=== PATIENT | male | born 1995 | race Caucasian/White ===

== ENCOUNTER 2021-04-06 20:52 | Emergency (ER) | payer BC ==
[2021-04-07] MEDS ORDERED: FAMOTIDINE 20 MG/2 ML VIAL IV ONE (01:36)
[2021-04-07] MEDS ORDERED: NA CHLORIDE 0.9% 1,000 ML ONE (01:36)
[2021-04-07 01:55] LABS: Protime INR 1.13
[2021-04-07 01:59] LABS: Absolute Lymphocytes (CBC) 3.2 K/uL (0.7-4.9); Basophils % 0.6 % (0-1.3); Hematocrit 42.9 % (39.6-49.0); Lymphocytes % 33.4 % (15.3-44.8); MPV 8.1 fL (7.6-11.3); RBC Red Blood Cell Count 5.08 M/uL (4.33-5.43)
[2021-04-07 02:12] LABS: ALT/SGPT 48 U/L (12-78); Albumin 4.3 g/dL (3.4-5.0); Alkaline Phosphatase 79 U/L (45-117); BUN Blood Urea Nitrogen 14 mg/dL (7-18); Bicarbonate 28 mmol/L (21-32); Bilirubin Direct 0.1 mg/dL (0-0.2); Bilirubin Total 0.4 mg/dL (0.2-1.0); Glucose Level 92 mg/dL (74-106); Lipase 101 U/L (73-393); NT PRO-BNP 6 pg/mL (<125); Potassium 4.3 mmol/L (3.5-5.1); Protein, Total 8.4 g/dL (6.4-8.2); Sodium Level 140 mmol/L (136-145); Troponin (Emerg Dept Use Only) < 0.02 ng/mL (0.0-0.045)
[2021-04-07 02:13] LABS: AST/SGOT 28 U/L (15-37); Magnesium 2.3 mg/dL (1.8-2.4)
[2021-04-07] MEDS ORDERED: FOLIC ACID 5 MG/ML VIAL ONE (03:14)
[2021-04-07] MEDS ORDERED: CEFTRIAXONE 1000 MG/VIAL ONE (03:45)
[2021-04-07] MEDS ORDERED: ASPIRIN 81 MG CHEWABLE TABLET ONE (03:45)
[2021-04-07] MEDS ORDERED: AMOX/K CLAV 875 MG TAB ONE (03:45)
--- NOTE | 2021-04-07 04:03 | EDPHYS ---
Physician Documentation [facility] Name: Gene James Age: 25 yrs Sex: Male : 1995 Arrival Date: 04/06/2021 Time: 21:23 Bed 2 Private MD: RICCO Physician Wallace Tyler HPI: 04/07 00:40 This 25 yrs old Male presents to ER via Ambulatory with complaints of tena TINGLING ON RT SIDE, Problem iwth throat. 00:40 The patient presents to the emergency department with nausea, that is mild. Onset: The tena symptoms/episode began/occurred 5 day(s) ago. Possible causes: unknown. The symptoms are aggravated by nothing. The symptoms are alleviated by nothing. difficulty swallowing 5 days, tonight right side feels numb. The patient presents to the emergency department with paresthesias of the right lower extremity, right upper extremity. Context: occurred at home. Associated signs and symptoms: The patient has no apparent associated signs or symptoms. Severity of symptoms: At their worst the symptoms were mild in the emergency department the symptoms are unchanged. Associated signs and symptoms: The patient has no apparent associated signs or symptoms. Historical: - Allergies: 04/06 22:32 No Known Allergies; bb - Home Meds: 22:32 None [Active]; bb - PMHx: 22:32 None; bb - PSHx: 22:32 None; bb - Immunization history:: Adult Immunizations up to date. - Social history:: Smoking status: Reported history of juuling and/or vaping. Patient uses alcohol, but reports only rare drinking. Patient/guardian denies using street drugs. - Family history:: not pertinent. ROS: 04/07 00:40 Constitutional: Negative for fever, chills, and weight loss, Eyes: Negative for injury, tena pain, redness, and discharge, ENT: Negative for injury, pain, and discharge, Neck: Negative for injury, pain, and swelling, Cardiovascular: Negative for chest pain, palpitations, and edema, Respiratory: Negative for shortness of breath, cough, wheezing, and pleuritic chest pain, Abdomen/GI: Negative for abdominal pain, nausea, vomiting, diarrhea, and constipation, Back: Negative for injury and pain, : Negative for injury, bleeding, discharge, and swelling, MS/Extremity: Negative for injury and deformity, Skin: Negative for injury, rash, and discoloration, Neuro: Negative for headache, weakness, numbness, tingling, and seizure, Psych: Negative for depression, anxiety, suicide ideation, homicidal ideation, and hallucinations, Allergy/Immunology: Negative for hives, rash, and allergies, Endocrine: Negative for neck swelling, polydipsia, polyuria, polyphagia, and marked weight changes, Hematologic/Lymphatic: Negative for swollen nodes, abnormal bleeding, and unusual bruising. Neuro: Negative for altered mental status, dizziness, gait disturbance, headache, numbness, seizure activity, speech changes, syncope, near syncope, tinnitus, tremor, visual changes, weakness, acute changes. Exam: 00:40 Constitutional: This is a well developed, well nourished patient who is awake, alert, tena and in no acute distress. Head/Face: Normocephalic, atraumatic. Eyes: Pupils equal round and reactive to light, extra-ocular motions intact. Lids and lashes normal. Conjunctiva and sclera are non-icteric and not injected. Cornea within normal limits. Periorbital areas with no swelling, redness, or edema. ENT: Nares patent. No nasal discharge, no septal abnormalities noted. Tympanic membranes are normal and external auditory canals are clear. Oropharynx with no redness, swelling, or masses, exudates, or evidence of obstruction, uvula midline. Mucous membranes moist. Neck: Trachea midline, no thyromegaly or masses palpated, and no cervical lymphadenopathy. Supple, full range of motion without nuchal rigidity, or vertebral point tenderness. No Meningismus. Chest/axilla: Normal chest wall appearance and motion. Nontender with no deformity. No lesions are appreciated. Cardiovascular: Regular rate and rhythm with a normal S1 and S2. No gallops, murmurs, or rubs. Normal PMI, no JVD. No pulse deficits. Respiratory: Lungs have equal breath sounds bilaterally, clear to auscultation and percussion. No rales, rhonchi or wheezes noted. No increased work of breathing, no retractions or nasal flaring. Abdomen/GI: Soft, non-tender, with normal bowel sounds. No distension or tympany. No guarding or rebound. No evidence of tenderness throughout. Back: No spinal tenderness. No costovertebral tenderness. Full range of motion. Male : Normal genitalia with no discharge or lesions. Skin: Warm, dry with normal turgor. Normal color with no rashes, no lesions, and no evidence of cellulitis. MS/ Extremity: Pulses equal, no cyanosis. Neurovascular intact. Full, normal range of motion. Neuro: Awake and alert, GCS 15, oriented to person, place, time, and situation. Cranial nerves II-XII grossly intact. Motor strength 5/5 in all extremities. Sensory grossly intact. Cerebellar exam normal. Normal gait. Psych: Awake, alert, with orientation to person, place and time. Behavior, mood, and affect are within normal limits. 03:28 ECG was reviewed by the Attending Physician. [facility] Vital Signs: 04/06 22:27 BP 134 / 83; Pulse 83; Resp 16 S; Temp 99(O); Pulse Ox 100% on R/A; Weight 124.74 kg bb (R); Height 6 ft. 1 in. (185.42 cm) (R); Pain 0/10; 04/07 03:00 BP 125 / 67; Pulse 61; Resp 16; Pulse Ox 98% on R/A; jb4 04:15 BP 124 / 53; Pulse 65; Resp 18; Pulse Ox 100% on R/A; jb4 04/06 22:27 Body Mass Index 36.28 (124.74 kg, 185.42 cm) bb NIH Stroke Scale Scores: 00:40 NIHSS Score: 0 tena MDM: 00:15 Patient medically screened. tena 00:43 Differential diagnosis: gastritis, cholecystitis, pancreatitis. Data reviewed: vital tena signs, nurses notes, lab test result(s), EKG, radiologic studies, CT scan. Data interpreted: environmental monitoring technician: rate is 83 beats/min, rhythm is regular. Test interpretation: by ED physician or midlevel provider: ECG, plain radiologic studies. Counseling: I had a detailed discussion with the patient and/or guardian regarding: the historical points, exam findings, and any diagnostic results supporting the discharge/admit diagnosis, lab results, radiology results. 04/07 00:38 Order name: Basic Metabolic Panel [facility] 04/07 00:38 Order name: CBC with Diff; Complete Time: 02:41 [facility] 04/07 00:38 Order name: LFT's [facility] 04/07 00:38 Order name: Magnesium [facility] 04/07 00:38 Order name: NT PRO-BNP [facility] 04/07 00:38 Order name: PT-INR; Complete Time: 02:41 [facility] 04/07 00:38 Order name: Troponin (emerg Dept Use Only); Complete Time: 02:41 [facility] 04/07 00:38 Order name: Lipase; Complete Time: 02:41 [facility] 04/07 00:38 Order name: CRP; Complete Time: 02:41 [facility] 04/07 00:38 Order name: Sed Rate; Complete Time: 02:41 [facility] 04/07 00:38 Order name: Basic Metabolic Panel; Complete Time: 02:41 EDMS 08 00:39 Order name: Liver (Hepatic) Function; Complete Time: 02:41 EDMS 04/07 00:39 Order name: Magnesium; Complete Time: 02:41 [facility]NY 04/07 00:39 Order name: NT PRO-BNP; Complete Time: 02:41 [facility] 04/07 00:38 Order name: XRAY Chest (1 view) [facility] 04/07 00:38 Order name: EKG; Complete Time: 00:39 [facility] 04/07 00:38 Order name: Cardiac monitoring; Complete Time: 01:57 [facility] 04/07 00:38 Order name: EKG - Nurse/Tech; Complete Time: 01:57 [facility] 04/07 00:38 Order name: IV Saline Lock; Complete Time: 01:24 [facility] 04/07 00:38 Order name: Labs collected and sent; Complete Time: 01:24 [facility] 04/07 00:38 Order name: O2 Per Protocol; Complete Time: 01:24 [facility] 04/07 00:38 Order name: O2 Sat Monitoring; Complete Time: 01:24 [facility] 04/07 00:38 Order name: CT Head Brain wo Cont [facility] 04/07 00:38 Order name: CT Soft Tissue Neck W/contr [facility] EC:28 Rate is 57 beats/min. Rhythm is regular. QRS [place] is Normal. CA interval is normal. QRS tena interval is normal. QT interval is normal. No Q waves. T waves are Normal. No ST changes noted. Clinical impression: Sinus bradycardia and No evidence of ischemia. Interpreted by me. Reviewed by me. Administered Medications: 01:22 Drug: NS 0.9% 1000 ml Route: IV; Rate: 1 bolus; Site: right forearm; jb4 02:30 Follow up: Response: No adverse reaction; IV Status: Completed infusion; IV Intake: jb4 1000ml 01:22 Drug: Pepcid (famotidine) 20 mg Route: IVP; Site: right forearm; jb4 02:00 Follow up: Response: No adverse reaction jb4 02:54 Drug: foLIC Acid 1 mg Route: IVPB; Site: right antecubital; jb4 03:00 Follow up: Response: No adverse reaction; IV Status: Completed infusion jb4 03:35 Drug: Rocephin (cefTRIAXone) 1 grams Route: IV; Rate: per protocol; Site: right jb4 antecubital; 04:19 Follow up: Response: No adverse reaction; IV Status: Completed infusion jb4 03:36 Drug: Aspirin Chewable Tablet 324 mg {Note: Provider Okayed to give aspirin now.} jb4 Route: PO; 04:19 Follow up: Response: No adverse reaction jb4 03:36 Drug: Augmentin (Amoxicillin-Clavulanate) 875 mg Route: PO; jb4 04:19 Follow up: Response: No adverse reaction jb4 Disposition Summary: 04/07/21 04:02 Discharge Ordered Location: Home tena Problem: new tena Symptoms: have improved tena Condition: Stable tena Diagnosis - Acute pansinusitis tena - Paresthesia of skin tena Followup: tena - With: Private Physician - When: 1 - 2 days - Reason: Recheck today's complaints, Continuance of care, Re-evaluation by your physician Followup: tena - With: - When: 1 - 2 days - Reason: Recheck today's complaints, Re-evaluation by your physician Discharge Instructions: - Discharge Summary Sheet tena - Paresthesia tena - Sinusitis, Adult tena - Sinusitis, Adult, [id number] tena - Aspirin and Your Heart tena - Paresthesia, [id number] tena Forms: - Medication Reconciliation Form tena - Thank You Letter tena - Antibiotic Education tena - Prescription Opioid Use tena Prescriptions: - Augmentin 875-125 mg Oral Tablet - take 1 tablet by ORAL route every 12 hours for 10 days; 20 tablet; Refills: 0, tena Product Selection Permitted - Folic Acid 1 mg Oral Tablet - take 1 tablet by ORAL route once daily; 30 tablet; Refills: 0, Product tena Selection Permitted NIH Stroke Scale - NIH Stroke Score Date: 04/07/2021 Time: 00:40 Total Score = 0 1a. Level of Consciousness (LOC) - 0(Alert) 1b. Level of Consciousness (LOC) (Month \T\ Age) - 0(Both) 1c. LOC Commands (Open \T\ Closes Eyes/Court Collections Officer) - 0(Both) 2. Best Gaze (Lateral Gaze Paresis) - 0(Normal) 3. Visual Field Loss - 0(No visual loss) 4. Facial Palsy - 0(Normal) 5a. Left Arm: Motor (10-second hold) - 0(No drift) 5b. Right Arm: Motor (10-second hold) - 0(No drift) 6a. Left Leg: Motor (5-second hold - always test supine) - 0(No drift) 6b. Right Leg: Motor (5-second hold - always test supine) - 0(No drift) 7. Limb Ataxia (finger/nose \T\ heel/saldivar - test with eyes open) - 0(Absent) 8. Sensory Loss (pinprick arms/legs/face) - 0(Normal) 9. Best Language: Aphasia (description/naming/reading) - 0(No aphasia) 10. Dysarthria (speech clarity - read or repeat words) - 0(Normal) 11. Extinction and Inattention (visual/tactile/auditory/spatial/personal) - 0(No abnormality) Initials: tena Signatures: Dispatcher [employer] Wallace Cintron MD MD cha Ballard, Brenda, RN RN Sagar Rosa, COKE STILL CLEANER-C COKE STILL CLEANER-Cla1 Grant Gillespie RN RN jb4
--- NOTE | 2021-04-07 04:03 | ER ---
Nurse's Notes [facility] Name: Gene James Age: 25 yrs Sex: Male : 1995 Arrival Date: 04/06/2021 Time: 21:23 Bed 2 Private MD: Diagnosis: Acute pansinusitis;Paresthesia of skin Presentation: 04/06 22:27 Chief complaint: Patient states: [facility] with a lump in bb his throat and a cough did not stay still has a lump but not as bad, vomited, unable to hold food down for several days and since approx 1930 right side of body feels "heavier" than left. Coronavirus screen: At this time, the client does not indicate any symptoms associated with coronavirus-19. Ebola Screen: No symptoms or risks identified at this time. Initial Sepsis Screen: Does the patient meet any 2 criteria? No. Patient's initial sepsis screen is negative. Does the patient have a suspected source of infection? No. Patient's initial sepsis screen is negative. Risk Assessment: Do you want to hurt yourself or someone else? Patient reports no desire to harm self or others. Onset of symptoms is unknown. 22:27 Method Of Arrival: Ambulatory bb 22:27 Acuity: ALEC 3 bb Triage Assessment: 22:32 General: Appears in no apparent distress. Behavior is calm, cooperative. Pain: Denies bb pain. Neuro: Level of Consciousness is awake, alert, obeys commands, Oriented to person, place, time, situation. Cardiovascular: Capillary refill < 3 seconds Patient's skin is warm and dry. Respiratory: Respiratory effort is even, unlabored, Respiratory pattern is regular. GI: No signs and/or symptoms were reported involving the gastrointestinal system. Derm: Skin is pink, warm \\T\\ dry. Musculoskeletal: Circulation, motion, and sensation intact. Reports heaviness to right side. Historical: - Allergies: 22:32 No Known Allergies; bb - Home Meds: 22:32 None [Active]; bb - PMHx: 22:32 None; bb - PSHx: 22:32 None; bb - Immunization history:: Adult Immunizations up to date. - Social history:: Smoking status: Reported history of juuling and/or vaping. Patient uses alcohol, but reports only rare drinking. Patient/guardian denies using street drugs. - Family history:: not pertinent. Screenin/03 00:30 Abuse screen: Denies threats or abuse. Nutritional screening: No deficits noted. jb4 Tuberculosis screening: No symptoms or risk factors identified. Fall Risk None identified. Assessment: 00:30 General: Appears in no apparent distress. comfortable, Behavior is calm, cooperative. jb4 Pain: Denies pain. Neuro: Level of Consciousness is awake, alert, obeys commands, Oriented to person, place, time, situation. Cardiovascular: Patient's skin is warm and dry. Respiratory: Airway is patent Respiratory effort is even, unlabored, Respiratory pattern is regular, symmetrical. GI: No signs and/or symptoms were reported involving the gastrointestinal system. : No signs and/or symptoms were reported regarding the genitourinary system. EENT: No signs and/or symptoms were reported regarding the EENT system. Derm: Skin is intact, Skin is pink, warm \\T\\ dry. Musculoskeletal: Circulation, motion, and sensation intact. Range of motion: intact in all extremities. 01:23 Reassessment: Patient appears in no apparent distress at this time. Patient and/or jb4 family updated on plan of care and expected duration. Pain level reassessed. Patient is alert, oriented x 3, equal unlabored respirations, skin warm/dry/pink. 02:28 Reassessment: Patient appears in no apparent distress at this time. Patient and/or jb4 family updated on plan of care and expected duration. Pain level reassessed. Patient is alert, oriented x 3, equal unlabored respirations, skin warm/dry/pink. 04:17 Reassessment: Patient appears in no apparent distress at this time. Patient and/or jb4 family updated on plan of care and expected duration. Pain level reassessed. Patient is alert, oriented x 3, equal unlabored respirations, skin warm/dry/pink. Vital Signs: 04/06 22:27 BP 134 / 83; Pulse 83; Resp 16 S; Temp 99(O); Pulse Ox 100% on R/A; Weight 124.74 kg bb (R); Height 6 ft. 1 in. (185.42 cm) (R); Pain 0/10; 04/07 03:00 BP 125 / 67; Pulse 61; Resp 16; Pulse Ox 98% on R/A; jb4 04:15 BP 124 / 53; Pulse 65; Resp 18; Pulse Ox 100% on R/A; jb4 04/06 22:27 Body Mass Index 36.28 (124.74 kg, 185.42 cm) bb NIH Stroke Scale Scores: 00:40 NIHSS Score: 0 [facility] ED Course: 04/06 21:23 Patient arrived in ED. es 22:32 Triage completed. bb 22:32 Arm band placed on Patient placed in waiting room, Patient notified of wait time. bb Family accompanied patient. 04/07 00:15 Wallace Tyler MD is Attending Physician. [facility] 00:16 Grant Gillespie, RN is Primary Nurse. jb4 00:30 Patient has correct armband on for positive identification. Bed in low position. Call jb4 light in reach. Side rails up X 1. Pulse ox on. NIBP on. 00:52 XRAY Chest (1 view) In Process Unspecified. EDMS 01:00 Initial lab(s) drawn, by al, sent to lab. Inserted saline lock: 18 gauge in right jb4 forearm, using aseptic technique. Blood collected. 02:29 CT Head Brain wo Cont In Process Unspecified. EDMS 02:29 CT Soft Tissue Neck W/contr In Process Unspecified. EDMS 04:02 Doni Hutson MD is Referral Physician. [facility] 04:15 No provider procedures requiring assistance completed. IV discontinued, intact, jb4 bleeding controlled, No redness/swelling at site. Pressure dressing applied. Administered Medications: 01:22 Drug: NS 0.9% 1000 ml Route: IV; Rate: 1 bolus; Site: right forearm; jb4 02:30 Follow up: Response: No adverse reaction; IV Status: Completed infusion; IV Intake: jb4 1000ml 01:22 Drug: Pepcid (famotidine) 20 mg Route: IVP; Site: right forearm; jb4 02:00 Follow up: Response: No adverse reaction jb4 02:54 Drug: foLIC Acid 1 mg Route: IVPB; Site: right antecubital; jb4 03:00 Follow up: Response: No adverse reaction; IV Status: Completed infusion jb4 03:35 Drug: Rocephin (cefTRIAXone) 1 grams Route: IV; Rate: per protocol; Site: right jb4 antecubital; 04:19 Follow up: Response: No adverse reaction; IV Status: Completed infusion jb4 03:36 Drug: Aspirin Chewable Tablet 324 mg {Note: Provider Okayed to give aspirin now.} jb4 Route: PO; 04:19 Follow up: Response: No adverse reaction jb4 03:36 Drug: Augmentin (Amoxicillin-Clavulanate) 875 mg Route: PO; jb4 04:19 Follow up: Response: No adverse reaction jb4 Intake: 02:30 IV: 1000ml; Total: 1000ml. jb4 Outcome: 04:02 Discharge ordered by . tena 04:15 Discharged to home ambulatory, with family. jb4 04:15 Condition: stable 04:15 Discharge instructions given to patient, Instructed on discharge instructions, follow up and referral plans. medication usage, Demonstrated understanding of instructions, follow-up care, medications, Prescriptions given X 2. 04:20 Patient left the ED. jb4 NIH Stroke Scale - NIH Stroke Score Date: 04/07/2021 Time: 00:40 Total Score = 0 1a. Level of Consciousness (LOC) - 0(Alert) 1b. Level of Consciousness (LOC) (Month \\T\\ Age) - 0(Both) 1c. LOC Commands (Open \\T\\ Closes Eyes/File Keeper) - 0(Both) 2. Best Gaze (Lateral Gaze Paresis) - 0(Normal) 3. Visual Field Loss - 0(No visual loss) 4. Facial Palsy - 0(Normal) 5a. Left Arm: Motor (10-second hold) - 0(No drift) 5b. Right Arm: Motor (10-second hold) - 0(No drift) 6a. Left Leg: Motor (5-second hold - always test supine) - 0(No drift) 6b. Right Leg: Motor (5-second hold - always test supine) - 0(No drift) 7. Limb Ataxia (finger/nose \\T\\ heel/saldivar - test with eyes open) - 0(Absent) 8. Sensory Loss (pinprick arms/legs/face) - 0(Normal) 9. Best Language: Aphasia (description/naming/reading) - 0(No aphasia) 10. Dysarthria (speech clarity - read or repeat words) - 0(Normal) 11. Extinction and Inattention (visual/tactile/auditory/spatial/personal) - 0(No abnormality) Initials: tena Signatures: Dispatcher [employer] EDWallace Albert MD MD cha Salyer, Edna es Ballard, Brenda, RN RN bb Grant Gillespie RN RN jb4
[2021-04-07 04:28] VITALS: TEMP 99
[2021-04-07 04:32] VITALS: BP 124/53; O2SAT 100
--- NOTE | 2021-04-07 07:23 | RAD REPORT ---
EXAM DESCRIPTION: RAD - Chest Single View - 04/07/2021 12:52 am CLINICAL HISTORY: CHEST PAIN COMPARISON: No comparisons FINDINGS: No evidence of edema or pneumonia. The heart size is within normal limits.No acute osseous abnormality. No significant pleural effusions or pneumothorax. IMPRESSION: No acute cardiopulmonary disease.
--- NOTE | 2021-04-07 11:16 | EKG ---
Test Date: 2021-04-07 Test Time: 02:05:37 [employer] Programmer: CASE MEASUREMENT RESULTS: Intervals: Rate: 57 VT: 172 QRSD: 96 QT: 432 QTc: 420 [place]: P: 36 VT: 172 QRS: 47 T: 35 INTERPRETIVE STATEMENTS: Sinus bradycardia Otherwise normal ECG No previous ECG available for comparison Electronically Signed On 04-07-21 11:16:16 CDT by Matthew Claudio
--- NOTE | 2021-04-07 13:03 | RAD REPORT ---
EXAM DESCRIPTION: CT - Head Brain Wo Cont - 04/07/2021 6:25 am CLINICAL HISTORY: 25 years, Male, TIA COMPARISON: None. FINDINGS: Multiple transaxial tomograms of the brain were obtained from the base of the skull to the vertex without contrast. 2-D multiplanar reformats and the coronal and sagittal plane were performed and reviewed. This exam was performed according to our departmental dose-optimization protocol, which includes auto mated exposure control, adjustment of the mA and/or kV according to patient size and/or use of iterat mery reconstruction technique. Brain parenchyma as well as the sandoval and white matter differentiation demonstrate to be unremarkable. There is no midline shift and/or mass effect. There is no evidence for acute hemorrhage and/or infar ction. Lateral ventricles and cisterns displace normal appearance. No intra or extra axial fluid collections were seen. The calvarium is intact with no evidence for fracture. The visualized portions of the paranasal sinuses demonstrate opacification of the bilateral maxillary sinuses, ethmoid sinus es and frontal sinuses. The mastoid air cells and orbits demonstrate to be clear. IMPRESSION: No evidence for acute intracranial hemorrhage. Unremarkable CT scan of the head without contrast. Pansinusitis. Electronically signed by: Elmo Vaughan MD 04/07/2021 2:57 AM CDT Due to temporary technical issues with the PACS/Fluency reporting system, reports are being signed by the in house radiologist without review as a courtesy to ensure prompt reporting. The interpreting r adiologist is fully responsible for the content of the report.
--- NOTE | 2021-04-07 13:52 | RAD REPORT ---
EXAM DESCRIPTION: CT - Soft Tissue Neck W/Contr - 04/07/2021 6:25 am CLINICAL HISTORY: 25 years, Male, ball in throat;Numbness COMPARISON: None. TECHNIQUE: Multiple transaxial tomograms of the neck were obtained from the base of the skull to the pulmonary apex utilizing 3 mm slice thickness at 3 mm interval reconstruction after the administrati on of IV contrast. In addition coronal and sagittal spinal reformats were generated and reviewed. This exam was performed according to our departmental dose-optimization protocol, which includes auto mated exposure control, adjustment of the mA and/or kV according to patient size and/or use of iterat mery reconstruction technique. FINDINGS: Skull base demonstrate to be normal. Nasopharynx, oropharynx, hypopharynx is normal. T here is no evidence for significant abnormal mucosal enhancement within the base of the tongue, fonseca cula and/or perform sinus Parapharyngeal space demonstrate to be normal. Parotid and submandibular gl ands are normal. There is normal appearance of the adenoids and tonsils. No significant abscess and/o r masses are demonstrated. Tiny nondiagnostic lymph nodes are seen within the posterior neck. Par avertebral elements are grossly unremarkable. There are prominent submandibular lymph nodes left side measuring 1.1 cm on image 36, right side mike uring 1.1 cm on image 37 most likely reactive in nature There is abnormal mucosal thickening frontal, ethmoid and bilateral maxillary sinuses corresponding t o pansinusitis. There is no significant abnormalities within the thyroid gland. The visualized portions of the lung a pexes are normal. No significant lower cervical lymphadenopathy. IMPRESSION: Pansinusitis. Slight prominent submandibular lymph nodes most likely reactive in nature. Otherwise no gross abnorma lities within the soft tissue neck with contrast. No significant tonsillar abscess. If concern direct visualization could be of assistance. Electronically signed by: Elmo Vaughan MD 04/07/2021 3:03 AM CDT Due to temporary technical issues with the PACS/Fluency reporting system, reports are being signed by the in house radiologist without review as a courtesy to ensure prompt reporting. The interpreting r adiologist is fully responsible for the content of the report.
== END 2021-04-07 04:20 | disposition home or self-care (01) ==
LOC: ER 20:52
DX: J01.40 Acute pansinusitis, unspecified (principal)
CPT/HCPCS: 93005; 85025; 80048; 36415; 83735; 85610; 80076; 85652; 84484; 83690; 83880; 86140; 70450; 70491; 71045; Q9967; J7030; 99284